=== PATIENT | female | born 1995 | race African-American/Black ===

== ENCOUNTER 2016-07-16 19:03 | Emergency (ER) | payer OTHER ==
[~2016-07-16] VITALS: Ht 147.3 cm; Wt 66.5 kg
[2016-07-16 19:07] VITALS: TEMP 36.9; Ht 147.3 cm; Wt 66.5 kg
[2016-07-16] MEDS ORDERED: ONDANSETRON INJ 2 MG/ML 2 ML VIAL IV STA (19:24)
[2016-07-16] MEDS ORDERED: KETOROLAC TROMETHAMINE 30 MG/ML VIAL IV STA (19:24)
[2016-07-16] MEDS ORDERED: FLUT0.15 NAE (19:25)
[2016-07-16] MEDS ORDERED: CLR10 PO (19:25)
[2016-07-16] MEDS ORDERED: BCPILLS PO (19:25)
[2016-07-16] MEDS ORDERED: VNTHFA/IN INH (19:25)
[2016-07-16 20:33] LABS: BASO % 0.2 %; BASO ABS # 0.02 K/uL (0-0.2); COMPLETE YES; EOS % 9.8 %; IG% 0.1 %; LYMPH % 40.3 %; LYMPH ABS # 3.26 K/uL (1.2-3.4); MEAN CELL VOLUME 84.9 fL (80-100); MEAN CORPUSCULAR HEMOGLOBIN 28.2 pg (25-34); MEAN CORPUSCULAR HGB CONC 33.2 g/dl (32-36); MEAN PLATELET VOLUME 10.5 fL (7.4-10.4); MONO % 5.3 %; NEUT % 44.3 %; PLATELET COUNT 271 K/uL (130-400); RED BLOOD COUNT 4.36 M/uL (4.2-5.4); WHITE BLOOD COUNT 8.08 K/uL (4.8-10.8)
[2016-07-16 20:47] LABS: URINE APPEARANCE CLEAR (CLEAR); URINE BILIRUBIN NEG (NEG); URINE COLOR YELLOW; URINE NITRITE NEG (NEG); URINE PH 7.5 (4.5-7.5); URINE SPECIFIC GRAVITY 1.017 (1.000-1.030); UROBILINOGEN NEG (NEG); ZZUR CULT IF INDIC CLEAN CATCH YES
[2016-07-16 20:53] LABS: ALKALINE PHOSPHATASE 61 U/L (45-117); ALT/SGPT 23 U/L (12-78); AST/SGOT 25 U/L (15-37)
[2016-07-16 20:55] LABS: MANUAL MICROSCOPIC REQUIRED? NO; REVIEW REQ? NO
[2016-07-16] MEDS ORDERED: NITR-5 PO (21:25)
--- NOTE | 2016-07-16 21:26 | EMERGENCY ROOM VISIT NOTE ---
History First contact with patient: 19:14 Chief Complaint: ABDOMINAL PAIN Stated Complaint: ABD PAIN,BACK PAIN,SPOTTING,VAGINAL IRRITATION History of Present Illness The patient is a 20 year old female who presents to the Emergency Room with complaints of abdominal pain. The patient states that she's had pain in her abdomen for the past week. The patient states it moves around in different spots currently it is on both sides of the lower abdomen. The patient admits to feeling nauseated but denies any vomiting. The patient denies any change in bowel habits. The patient admits to urinary frequency but denies any urgency, dysuria or hematuria. The patient also states that last week she thought she had infection and treated herself with Monistat. She states the vaginal irritation improved after treatment. She does admit to one episode of vaginal discharge since that time but does not know if it was still some of the Monistat that she took for the yeast infection. The patient denies any history of sexual transmitted diseases. The patient also admits that she had 2 episodes of noting some vaginal blood when she wiped after urinating on the second and third of this month. The patient's last menstrual period was July 02 through the . The patient states that her cycle is regular. The patient states that she is from [place] but was doing and externship in the area and try to go to Dr. Archib[facility] clinic today but they did not take her insurance. That is why she came to the emergency room. Review of Systems 10 system review was performed and was negative unless stated otherwise history of present illness. Social History Smoking Status: Current Every Day Smoker Current/Historical Medications Scheduled Control Pills ( Control Pills), 1 TAB PO DAILY Fluticasone Propionate (Nasal) (Flonase Allergy Relief), 2 SPRAYS [place] DAILY Loratadine (Claritin), 10 MG PO DAILY Scheduled PRN Albuterol Hfa (Ventolin Hfa), 2 PUFFS INH Q6H PRN for Shortness of Breath Allergies Coded Allergies: No Known Allergies (Unverified , 07/16/16) Physical Exam Vital Signs Date Time Temp Pulse Resp B/P Pulse Ox O2 Delivery O2 Flow Rate FiO2 07/16/16 20:26 63 20 127/84 100 Room Air 07/16/16 19:07 36.9 95 16 154/91 98 Room Air Physical Exam GENERAL: 20-year-old female appears in no acute distress MENTAL Status: Alert and oriented 3. The patient is a poor historian. EYES: No icterus noted MOUTH: Mucosa is moist NECK: Supple, no lymphadenopathy noted. No carotid bruits noted. LUNGS: Clear auscultation without wheezes rales or rhonchi. CARDIAC: Regular rate and rhythm without murmur. Pulses is full and equal throughout. BACK: No CVA tenderness noted. ABDOMEN: Positive bowel sounds all 4 quadrants. Soft, mild tenderness palpation in the bilateral lower quadrants otherwise nontender to palpation without organomegaly or masses. EXTREMITIES: No cyanosis or edema noted. Medical Decision & Procedures Laboratory Results 07/16/16 20:20 Red Blood Count 4.36, Mean Corpuscular Volume 84.9, Mean Corpuscular Hemoglobin 28.2, Mean Corpuscular Hemoglobin Concent 33.2, Mean Platelet Volume 10.5, Neutrophils (%) (Auto) 44.3, Lymphocytes (%) (Auto) 40.3, Monocytes (%) (Auto) 5.3, Eosinophils (%) (Auto) 9.8, Basophils (%) (Auto) 0.2, Neutrophils # (Auto) 3.57, Lymphocytes # (Auto) 3.26, Monocytes # (Auto) 0.43, Eosinophils # (Auto) 0.79, Basophils # (Auto) 0.02 Test 07/16/16 20:10 07/16/16 20:20 Urine Color YELLOW Urine Appearance CLEAR (CLEAR) Urine pH 7.5 (4.5-7.5) Urine Specific [place] 1.017 (1.000-1.030) Urine Protein NEG (NEG) Urine Glucose (UA) NEG (NEG) Urine Ketones NEG (NEG) Urine Occult Blood TRACE (NEG) Urine Nitrite NEG (NEG) Urine Bilirubin NEG (NEG) Urine Urobilinogen NEG (NEG) Urine Leukocyte Esterase SMALL (NEG) Urine WBC (Auto) 10-30 /hpf (0-5) Urine RBC (Auto) 0-4 /hpf (0-4) Urine Hyaline Casts (Auto) 1-5 /lpf (0-5) Urine Epithelial Cells (Auto) 10-20 /lpf (0-5) Urine Bacteria (Auto) 4+ (NEG) White Blood Count 8.08 K/uL (4.8-10.8) Red Blood Count 4.36 M/uL (4.2-5.4) Hemoglobin 12.3 g/dL (12.0-16.0) Hematocrit 37.0 % (37-47) Mean Corpuscular Volume 84.9 fL (80-100) Mean Corpuscular Hemoglobin 28.2 pg (25-34) Mean Corpuscular Hemoglobin Concent 33.2 g/dl (32-36) Platelet Count 271 K/uL (130-400) Mean Platelet Volume 10.5 fL (7.4-10.4) Neutrophils (%) (Auto) 44.3 % Lymphocytes (%) (Auto) 40.3 % Monocytes (%) (Auto) 5.3 % Eosinophils (%) (Auto) 9.8 % Basophils (%) (Auto) 0.2 % Neutrophils # (Auto) 3.57 K/uL (1.4-6.5) Lymphocytes # (Auto) 3.26 K/uL (1.2-3.4) Monocytes # (Auto) 0.43 K/uL (0.11-0.59) Eosinophils # (Auto) 0.79 K/uL (0-0.5) Basophils # (Auto) 0.02 K/uL (0-0.2) RDW Standard Deviation 38.6 fL (36.4-46.3) RDW Coefficient of Variation 12.5 % (11.5-14.5) Immature Granulocyte % (Auto) 0.1 % Immature Granulocyte # (Auto) 0.01 K/uL (0.00-0.02) Total Bilirubin 0.2 mg/dl (0.2-1) Direct Bilirubin < 0.1 mg/dl (0-0.2) Aspartate Amino Transf (AST/SGOT) 25 U/L (15-37) Alanine Aminotransferase (ALT/SGPT) 23 U/L (12-78) Alkaline Phosphatase 61 U/L (45-117) Total Protein 7.8 gm/dl (6.4-8.2) Albumin 3.4 gm/dl (3.4-5.0) Lipase 132 U/L (73-393) Medications Administered Medications (Trade) Dose Ordered Sig/Mine Route Start Time Stop Time Status Last Admin Dose Admin Ondansetron HCl (Zofran Inj) 4 mg NOW STAT IV 07/16/16 19:24 1/5/17 19:26 DC 07/16/16 20:06 4 MG Ketorolac Tromethamine (Toradol Inj) 30 mg NOW STAT IV 07/16/16 19:24 07/16/16 19:26 DC 07/16/16 20:06 30 MG ED Course The patient was evaluated. IV access was obtained. CBC and differential, renal profile, LFTs and lipase levels were ordered. Urinalysis was ordered. The patient was given Toradol 30 mg IV for pain and Zofran 4 mg IV for nausea. The patient's labs are reviewed and were unremarkable. The patient's urinalysis revealed positive leukocytes positive blood and 4+ bacteria. Culture is pending. The patient was informed of the findings. The patient was given Macrobid 100 mg by mouth. The patient was discharged home in stable condition. Medical Decision Differential diagnosis include kidney stone, pyelonephritis, UTI, gastroenteritis Impression Primary Impression: UTI (urinary tract infection) Departure Information Dispostion Home / Self-Care Condition GOOD Prescriptions Nitrofurantoin Monohyd Macrocr (Macrobid) 100 Mg Cap 100 MG PO BID for 7 Days, #14 CAP Prov: Shoshana Medina, JUSTINO 07/16/16 Referrals No Doctor, Assigned (PCP) Forms HOME CARE DOCUMENTATION FORM, IMPORTANT VISIT INFORMATION, [facility] Patient Instructions A Signature Page, ED UTI Cystitis Female Additional Instructions Push fluids. Take Macrobid as prescribed. If symptoms persist or worsen, follow-up with [facility] services. If symptoms worsen, return to ER.
[2016-07-16] MEDS ORDERED: NITROFURANTOIN MONOHYDRATE 100 MG CAP PO ONE (21:30)
[2016-07-16 21:46] VITALS: BP 117/69; PULSE 70; O2SAT 100
== END 2016-07-16 21:46 | disposition home or self-care (01) ==
LOC: C.EDB 19:05
DX: N39.0 Urinary tract infection, site not specified (principal); F17.200 Nicotine dependence, unspecified, uncomplicated